=== PATIENT | female | born 2000 | race Two or more races ===

== ENCOUNTER → 2020-03-20 | Outpatient (CLI) | payer OTHER | LOC: M RAD 08:53 | PROVIDERS: ATTEND Physician Assistant | DX: Z53.9 Procedure and treatment not carried out, unspecified reason (principal); M79.661 Pain in right lower leg ==

== ENCOUNTER 2021-11-16 21:15 | Emergency (ER) | payer OTHER ==
[~2021-11-16] VITALS: Ht 154.9 cm; Wt 75.0 kg
[2021-11-16 21:15] VITALS: BP 116/66
[2021-11-16] MEDS ORDERED: PRENTAB9 PO (21:43)
== END 2021-11-16 21:30 | disposition admitted as inpatient to this hospital (09) ==
LOC: M ED 21:15
DX: Z53.21 Procedure and treatment not carried out due to patient leaving prior to being seen by health care provider (principal)

== ENCOUNTER 2021-11-16 21:29 | Outpatient (CLI) | payer OTHER ==
[~2021-11-16] VITALS: Ht 154.9 cm; Wt 74.6 kg
[2021-11-16] MEDS ORDERED: PRENTAB9 PO (21:43)
[2021-11-16] MEDS ORDERED: HOME MED LIST COMPLETE! XX SCH (21:45)
[2021-11-16 21:49] VITALS: BP 129/69
[2021-11-16] MEDS ORDERED: BICITRA 30ML SOLN UDC PO ONE (21:55)
[2021-11-16] MEDS ORDERED: ONDANSETRON 4MG ORAL DISINTEGRATING TAB PO ONE (21:55)
== END 2021-11-16 22:26 | disposition home or self-care (01) ==
LOC: M LDO 21:29
PROVIDERS: ATTEND Obstetrics & Gynecology
DX: O26.892 Other specified pregnancy related conditions, second trimester (principal); R10.10 Upper abdominal pain, unspecified; Z3A.25 25 weeks gestation of pregnancy; O99.612 Diseases of the digestive system complicating pregnancy, second trimester; K21.9 Gastro-esophageal reflux disease without esophagitis
CPT/HCPCS: 59025; G0463